=== PATIENT | male | born 1985 | race Caucasian/White ===

== ENCOUNTER 2017-04-19 10:33 | Emergency (ER) | payer OTHER ==
[2017-04-19] MEDS ORDERED: ASPIRIN 81 MG PO STA (10:49)
--- NOTE | 2017-04-19 10:51 | ED ---
General Adult HPI - General Chief complaint: Chest Pain Stated complaint: CHEST TIGHTNESS, LEFT ARM TINGLING Time Seen by Provider: 04/19/17 10:45 Source: patient, RN notes reviewed Mode of arrival: wheelchair Limitations: no limitations - History of Present Illness Initial comments: 31-year-old male presents to the emergency department with chief complaint of chest pain that radiates in the left arm. Patient describes it as a chest tightness and he states he had numbness and tingling to the left arm. Patient states he had a few days ago and he was in argument with his ex-. Patient states that then today he had it again while he was getting his kids ready for school. Patient states he is under a lot of stress Does cause a lot of stress but he states that this is concerning to him. Patient states left arm numbness has resolved but he still having the chest tightness. Patient denies any shortness of breath any nausea any diaphoresis with this. Patient does admit to history of smoking. Patient denies any health concerns or any young heart history in his family. Patient denies any recent fever, chills, shortness of breath, back pain, abdominal pain, nausea vomiting, numbness or tingling, dysuria or hematuria, constipation or diarrhea, headaches or visual changes, or any other current symptoms. - Related Data Home Medications Medication Instructions Recorded Confirmed No Known Home Medications [No 01/28/16 04/19/17 Known Home Medications] Allergies Allergy/AdvReac Type Severity Reaction Status Date / Time No Known Allergies Allergy Verified 04/19/17 14:04 Review of Systems ROS Statement: Those systems with pertinent positive or pertinent negative responses have been documented in the HPI. ROS Other: All systems not noted in ROS Statement are negative. Past Medical History Past Medical History: No Reported History History of Any Multi-Drug Resistant Organisms: None Reported Past Surgical History: Adenoidectomy, Tonsillectomy Past Psychological History: No Psychological Hx Reported Smoking Status: Former smoker Past Alcohol Use History: Rare Past Drug Use History: None Reported General Exam - General Exam Comments Initial Comments: General: The patient is awake and alert, in no distress, and does not appear acutely ill. Eye: Pupils are equal, round and reactive to light, extra-ocular movements are intact; there is normal conjunctiva bilaterally. No signs of icterus. Ears, nose, mouth and throat: There are moist mucous membranes and no oral lesions. Neck: The neck is supple, there is no tenderness. Cardiovascular: There is a regular rate and rhythm. No murmur, rub or gallop is appreciated. Respiratory: Lungs are clear to auscultation, respirations are non-labored, breath sounds are equal. No wheezes, stridor, rales, or rhonchi. Gastrointestinal: Soft, non-distended, non-tender abdomen without masses or organomegaly noted. There is no rebound or guarding present. No CVA tenderness. Bowel sounds are unremarkable. Back: There is no tenderness to palpation in the midline. There is no obvious deformity. No rashes noted. Musculoskeletal: Normal ROM, no tenderness, There is no pedal edema. There is no calf tenderness or swelling. Sensation intact. Pulses equal bilaterally 2+. Neurological: CN II-XII intact, There are no obvious motor or sensory deficits. Coordination appears grossly intact. Speech is normal. Skin: Skin is warm and dry and no rashes or lesions are noted. Psychiatric: Cooperative, appropriate mood & affect, normal judgment. Limitations: no limitations Course Vital Signs 04/19/17 04/19/17 04/19/17 10:41 12:56 13:05 Temperature 98.5 F Pulse Rate 65 65 72 Respiratory 20 16 Rate Blood Pressure 135/60 130/62 131/62 O2 Sat by Pulse 100 99 Oximetry 04/19/17 04/19/17 13:10 13:15 Temperature Pulse Rate 66 62 Respiratory 16 Rate Blood Pressure 130/56 122/60 O2 Sat by Pulse 99 Oximetry - Reevaluation(s) Reevaluation #1: 04/19/17 13:12 At this time patient does not have any improvement with nitro to his pain. At this time he states any time that he text an argument seems to have worsening tightness. EKG Findings - EKG Comments: EKG Findings:: normal sinus rhythm with sinus arrhythmia 60 bpm, normal axis, no atopy, no S-T depressions or elevations, Medical Decision Making - Medical Decision Making 31-year-old male presents to the emergency Department chief complaint of left- sided chest pain. At this time the patient lab work is reviewed as well as an EKG that does appear within normal limits. We called For Admission for Continued Cardiac Monitoring and They State That They Do Not Believe the Patient 's Heart Score Appropriate for Admission. At This Time We Did Keep the Patient Had a D-Dimer Which Is Negative.. Drug Screen Was Has Not Shown Use besides Marijuana. We Discussed Second Troponin 4 Hours Later That Is Also Negative. This Time We Discussed the Patient Was Family Care Doctor. He Does Seem to Have Increased Pain When He Talks to His Ex-. We Did Discuss This Could Be Related to Stress and Anxiety. Discussed Return Parameters QUESTIONS Very State [facility] Is Given Plan. He Will Be Discharged. - Lab Data Result diagrams: 04/19/17 11:15 04/19/17 11:15 Lab Results 04/19/17 04/19/17 04/19/17 Range/Units 11:15 11:15 11:15 WBC 9.4 (3.8-10.6) k/uL RBC 5.33 (4.30-5.90) m/uL Hgb 15.7 (13.0-17.5) gm/dL Hct 46.1 (39.0-53.0) % MCV 86.5 (80.0-100.0) fL MCH 29.5 (25.0-35.0) pg MCHC 34.1 (31.0-37.0) g/dL RDW 14.3 (11.5-15.5) % Plt Count 257 (150-450) k/uL Neutrophils % 64 % Lymphocytes % 25 % Monocytes % 5 % Eosinophils % 3 % Basophils % 1 % Neutrophils # 6.0 (1.3-7.7) k/uL Lymphocytes # 2.4 (1.0-4.8) k/uL Monocytes # 0.5 (0-1.0) k/uL Eosinophils # 0.2 (0-0.7) k/uL Basophils # 0.1 (0-0.2) k/uL PT (9.0-12.0) sec INR (<1.2) APTT (22.0-30.0) sec D-Dimer (<0.60) mg/L FEU Sodium 140 (137-145) mmol/L Potassium 4.5 (3.5-5.1) mmol/L Chloride 109 H (98-107) mmol/L Carbon Dioxide 23 (22-30) mmol/L Anion Gap 8 mmol/L BUN 13 (9-20) mg/dL Creatinine 0.60 L (0.66-1.25) mg/dL Est GFR (MDRD) Af Amer >60 (>60 ml/min/1.73 sqM) Est GFR (MDRD) Non-Af >60 (>60 ml/min/1.73 sqM) Glucose 88 (74-99) mg/dL Calcium 9.5 (8.4-10.2) mg/dL Magnesium 1.9 (1.6-2.3) mg/dL Total Bilirubin 0.7 (0.2-1.3) mg/dL AST 35 (17-59) U/L ALT 42 (21-72) U/L Alkaline Phosphatase 60 (38-126) U/L Total Creatine Kinase 459 H (55-170) U/L CK-MB (CK-2) 0.7 (0.0-2.4) ng/mL CK-MB (CK-2) Rel Index 0.2 Troponin I <0.012 (0.000-0.034) ng/mL Total Protein 6.8 (6.3-8.2) g/dL Albumin 4.2 (3.5-5.0) g/dL Urine Opiates Screen (NotDetected) Ur Oxycodone Screen (NotDetected) Urine Methadone Screen (NotDetected) Ur Propoxyphene Screen (NotDetected) Ur Barbiturates Screen (NotDetected) U Tricyclic Antidepress (NotDetected) Ur Phencyclidine Scrn (NotDetected) Ur Amphetamines Screen (NotDetected) U Methamphetamines Scrn (NotDetected) U Benzodiazepines Scrn (NotDetected) Urine Cocaine Screen (NotDetected) U Marijuana (THC) Screen (NotDetected) 04/19/17 04/19/17 04/19/17 Range/Units 11:15 11:15 13:38 WBC (3.8-10.6) k/uL RBC (4.30-5.90) m/uL Hgb (13.0-17.5) gm/dL Hct (39.0-53.0) % MCV (80.0-100.0) fL MCH (25.0-35.0) pg MCHC (31.0-37.0) g/dL RDW (11.5-15.5) % Plt Count (150-450) k/uL Neutrophils % % Lymphocytes % % Monocytes % % Eosinophils % % Basophils % % Neutrophils # (1.3-7.7) k/uL Lymphocytes # (1.0-4.8) k/uL Monocytes # (0-1.0) k/uL Eosinophils # (0-0.7) k/uL Basophils # (0-0.2) k/uL PT 10.8 (9.0-12.0) sec INR 1.1 (<1.2) APTT 24.9 (22.0-30.0) sec D-Dimer 0.23 (<0.60) mg/L FEU Sodium (137-145) mmol/L Potassium (3.5-5.1) mmol/L Chloride (98-107) mmol/L Carbon Dioxide (22-30) mmol/L Anion Gap mmol/L BUN (9-20) mg/dL Creatinine (0.66-1.25) mg/dL Est GFR (MDRD) Af Amer (>60 ml/min/1.73 sqM) Est GFR (MDRD) Non-Af (>60 ml/min/1.73 sqM) Glucose (74-99) mg/dL Calcium (8.4-10.2) mg/dL Magnesium (1.6-2.3) mg/dL Total Bilirubin (0.2-1.3) mg/dL AST (17-59) U/L ALT (21-72) U/L Alkaline Phosphatase (38-126) U/L Total Creatine Kinase (55-170) U/L CK-MB (CK-2) (0.0-2.4) ng/mL CK-MB (CK-2) Rel Index Troponin I (0.000-0.034) ng/mL Total Protein (6.3-8.2) g/dL Albumin (3.5-5.0) g/dL Urine Opiates Screen Not Detected (NotDetected) Ur Oxycodone Screen Not Detected (NotDetected) Urine Methadone Screen Not Detected (NotDetected) Ur Propoxyphene Screen Not Detected (NotDetected) Ur Barbiturates Screen Not Detected (NotDetected) U Tricyclic Antidepress Not Detected (NotDetected) Ur Phencyclidine Scrn Not Detected (NotDetected) Ur Amphetamines Screen Not Detected (NotDetected) U Methamphetamines Scrn Not Detected (NotDetected) U Benzodiazepines Scrn Not Detected (NotDetected) Urine Cocaine Screen Not Detected (NotDetected) U Marijuana (THC) Screen Detected H (NotDetected) 04/19/17 Range/Units 15:05 WBC (3.8-10.6) k/uL RBC (4.30-5.90) m/uL Hgb (13.0-17.5) gm/dL Hct (39.0-53.0) % MCV (80.0-100.0) fL MCH (25.0-35.0) pg MCHC (31.0-37.0) g/dL RDW (11.5-15.5) % Plt Count (150-450) k/uL Neutrophils % % Lymphocytes % % Monocytes % % Eosinophils % % Basophils % % Neutrophils # (1.3-7.7) k/uL Lymphocytes # (1.0-4.8) k/uL Monocytes # (0-1.0) k/uL Eosinophils # (0-0.7) k/uL Basophils # (0-0.2) k/uL PT (9.0-12.0) sec INR (<1.2) APTT (22.0-30.0) sec D-Dimer (<0.60) mg/L FEU Sodium (137-145) mmol/L Potassium (3.5-5.1) mmol/L Chloride (98-107) mmol/L Carbon Dioxide (22-30) mmol/L Anion Gap mmol/L BUN (9-20) mg/dL Creatinine (0.66-1.25) mg/dL Est GFR (MDRD) Af Amer (>60 ml/min/1.73 sqM) Est GFR (MDRD) Non-Af (>60 ml/min/1.73 sqM) Glucose (74-99) mg/dL Calcium (8.4-10.2) mg/dL Magnesium (1.6-2.3) mg/dL Total Bilirubin (0.2-1.3) mg/dL AST (17-59) U/L ALT (21-72) U/L Alkaline Phosphatase (38-126) U/L Total Creatine Kinase (55-170) U/L CK-MB (CK-2) (0.0-2.4) ng/mL CK-MB (CK-2) Rel Index Troponin I <0.012 (0.000-0.034) ng/mL Total Protein (6.3-8.2) g/dL Albumin (3.5-5.0) g/dL Urine Opiates Screen (NotDetected) Ur Oxycodone Screen (NotDetected) Urine Methadone Screen (NotDetected) Ur Propoxyphene Screen (NotDetected) Ur Barbiturates Screen (NotDetected) U Tricyclic Antidepress (NotDetected) Ur Phencyclidine Scrn (NotDetected) Ur Amphetamines Screen (NotDetected) U Methamphetamines Scrn (NotDetected) U Benzodiazepines Scrn (NotDetected) Urine Cocaine Screen (NotDetected) U Marijuana (THC) Screen (NotDetected) - Radiology Data Radiology results: report reviewed, image reviewed Disposition Clinical Impression: Chest pain, Anxiety Disposition: HOME SELF-CARE Condition: Stable Instructions: Chest Pain (ED) Additional Instructions: Please use medication as discussed. Please follow up with family doctor if symptoms have not improved over the next two days. Please return to the emergency room if your symptoms increase or worsen or for any other concerns. Referrals: Jessica Farrell MD [STAFF PHYSICIAN] - 1-2 days Time of Disposition: 15:47
[2017-04-19 11:32] LABS: Basophils # (A) 0.1 k/uL (0-0.2); Basophils % (A) 1 %; CH 30.7; CHCM 35.6; Eosinophils # (A) 0.2 k/uL (0-0.7); Eosinophils % (A) 3 %; HCT 46.1 % (39.0-53.0); HDW 2.56; HGB 15.7 gm/dL (13.0-17.5); Luc # (Auto) 0.19; Luc % (Auto) 2; Lymphocytes # (A) 2.4 k/uL (1.0-4.8); Lymphocytes % (A) 25 %; MCH 29.5 pg (25.0-35.0); MCHC 34.1 g/dL (31.0-37.0); MCV 86.5 fL (80.0-100.0); Mean Platelet Volume 8.2; Monocytes # (A) 0.5 k/uL (0-1.0); Monocytes % (A) 5 %; Neutrophils % (A) 64 %; RBC 5.33 m/uL (4.30-5.90); RDW 14.3 % (11.5-15.5); WBC 9.4 k/uL (3.8-10.6); WBC (Perox) 9.17
[2017-04-19 11:42] LABS: ALT 42 U/L (21-72); AST 35 U/L (17-59); Alkaline Phosphatase 60 U/L (38-126); Anion Gap 8 mmol/L; Blood Urea Nitrogen 13 mg/dL (9-20); Calcium 9.5 mg/dL (8.4-10.2); Carbon Dioxide 23 mmol/L (22-30); Chloride 109 mmol/L (98-107); Glucose 88 mg/dL (74-99); Magnesium 1.9 mg/dL (1.6-2.3); Non-African American GFR(MDRD) >60 (>60 ml/min/1.73 sqM); Potassium 4.5 mmol/L (3.5-5.1); Sodium 140 mmol/L (137-145); Total Bilirubin 0.7 mg/dL (0.2-1.3); Total Protein 6.8 g/dL (6.3-8.2)
--- NOTE | 2017-04-19 11:42 | XR ---
EXAMINATION TYPE: XR chest 2V DATE OF EXAM: 04/19/2017 HISTORY: Chest Pain. REFERENCE: Previous study dated 09/10/2015. FINDINGS: The lungs are clear. Pleural spaces are clear. The heart is not enlarged. IMPRESSION: NO ACTIVE INTRATHORACIC DISEASE.
[2017-04-19 11:48] LABS: Creatine Kinase 459 U/L (55-170)
[2017-04-19 11:59] LABS: Creatine Kinase MB 0.7 ng/mL (0.0-2.4); Troponin I <0.012 ng/mL (0.000-0.034)
[2017-04-19 12:01] LABS: INR 1.1 (<1.2); Partial Thromboplastin Time 24.9 sec (22.0-30.0); Prothrombin Time 10.8 sec (9.0-12.0)
[2017-04-19] MEDS ORDERED: NITROGLYCERIN SL TABS 0.4 MG TAB SUBLINGUAL STA (12:44)
[2017-04-19 12:57] VITALS: RESP 16
[2017-04-19 16:01] VITALS: BP 118/57; PULSE 65; TEMP 99
== END 2017-04-19 16:00 | disposition home or self-care (01) ==
LOC: EC 10:33
DX: R07.89 Other chest pain (principal); F41.9 Anxiety disorder, unspecified; R20.0 Anesthesia of skin; R20.2 Paresthesia of skin; Z87.891 Personal history of nicotine dependence
CPT/HCPCS: 36415; 71020; 80053; 80306; 82550; 82553; 83735; 84484; 85025; 85379; 85610; 85730; 93005; 99285

== ENCOUNTER 2017-04-21 14:52 | Inpatient (IN) | payer OTHER ==
[2017-04-21] MEDS ORDERED: LORazepam 2 MG/ML SYRINGE IV STA (15:34)
--- NOTE | 2017-04-21 15:50 | ED ---
General Adult HPI - General Chief complaint: Chest Pain Stated complaint: Chest tightness/SOB Time Seen by Provider: 04/21/17 15:24 Source: patient, RN notes reviewed Mode of arrival: ambulatory Limitations: no limitations - History of Present Illness Initial comments: 31-year-old male presents to the emergency Department chief complaint of chest pain. Patient states it feels like a tightness intense chest and radiates down left arm. Patient states she was seen here on Thursday for this. Patient states that time everything was negative sent home. Patient states that he continued to have the pain on and off for the past 2 days and today he just continued to lingering be intensively thought that he should be seen. Patient states the tightness in his chest and radiates on left arm. Patient states that the pain is always tight by Rm increased renal left arm on and off. Patient states had nausea without vomiting. Patient denies any diaphoresis. Patient states that when the pain gets more intense she does have some shortness of breath. Patient was concerned due to the continued pain.Patient denies any recent fever , chills, back pain, abdominal pain, nausea vomiting, numbness or tingling, dysuria or hematuria, constipation or diarrhea, headaches or visual changes, or any other current symptoms. - Related Data Home Medications Medication Instructions Recorded Confirmed No Known Home Medications [No 01/28/16 04/21/17 Known Home Medications] Allergies Allergy/AdvReac Type Severity Reaction Status Date / Time No Known Allergies Allergy Verified 04/21/17 15:20 Review of Systems ROS Statement: Those systems with pertinent positive or pertinent negative responses have been documented in the HPI. ROS Other: All systems not noted in ROS Statement are negative. Past Medical History Past Medical History: No Reported History History of Any Multi-Drug Resistant Organisms: None Reported Past Surgical History: Adenoidectomy, Tonsillectomy Past Psychological History: No Psychological Hx Reported Smoking Status: Former smoker Past Alcohol Use History: Rare Past Drug Use History: None Reported General Exam - General Exam Comments Initial Comments: General: The patient is awake and alert, in no distress, and does not appear acutely ill. Eye: Pupils are equal, round and reactive to light, extra-ocular movements are intact; there is normal conjunctiva bilaterally. No signs of icterus. Ears, nose, mouth and throat: There are moist mucous membranes and no oral lesions. Neck: The neck is supple, there is no tenderness. Cardiovascular: There is a regular rate and rhythm. No murmur, rub or gallop is appreciated. Respiratory: Lungs are clear to auscultation, respirations are non-labored, breath sounds are equal. No wheezes, stridor, rales, or rhonchi. Gastrointestinal: Soft, non-distended, non-tender abdomen without masses or organomegaly noted. There is no rebound or guarding present. No CVA tenderness. Bowel sounds are unremarkable. Back: There is no tenderness to palpation in the midline. There is no obvious deformity. No rashes noted. Musculoskeletal: Normal ROM, no tenderness, There is no pedal edema. There is no calf tenderness or swelling. Sensation intact. Pulses equal bilaterally 2+. Neurological: CN II-XII intact, There are no obvious motor or sensory deficits. Coordination appears grossly intact. Speech is normal. Skin: Skin is warm and dry and no rashes or lesions are noted. Psychiatric: Cooperative, appropriate mood & affect, normal judgment. Limitations: no limitations Course Vital Signs 04/21/17 04/21/17 14:55 16:13 Temperature 97.0 F L Pulse Rate 72 Pulse Rate [ 72 Right Radial] Respiratory 17 Rate Blood Pressure 129/93 O2 Sat by Pulse 100 Oximetry EKG Findings - EKG Comments: EKG Findings:: normal sinus rhythm 84 bpm, normal axis, no atopy, no S-T depressions or elevations, patient agreed. Patient does appear to have flattening of the T waves in V4 V5 and V6 which is new compared to EKG from Medical Decision Making - Medical Decision Making 31-year-old male presents with chest pain. At this time patient's lab work and EKG has been reviewed. Does appear to be some EKG changes compared to EKG from 2 days ago he continues have this chest pain. This time we will admit the patient for cardiac rule out. Patient family on agreement with plan. All questions have been answered. Patient will be admitted. - Lab Data Result diagrams: 04/21/17 15:45 04/21/17 15:45 Lab Results 04/21/17 04/21/17 04/21/17 Range/Units 15:45 15:45 15:45 WBC 10.7 H (3.8-10.6) k/uL RBC 5.51 (4.30-5.90) m/uL Hgb 16.3 (13.0-17.5) gm/dL Hct 47.1 (39.0-53.0) % MCV 85.5 (80.0-100.0) fL MCH 29.5 (25.0-35.0) pg MCHC 34.5 (31.0-37.0) g/dL RDW 14.1 (11.5-15.5) % Plt Count 249 (150-450) k/uL Neutrophils % 69 % Lymphocytes % 23 % Monocytes % 5 % Eosinophils % 3 % Basophils % 0 % Neutrophils # 7.3 (1.3-7.7) k/uL Lymphocytes # 2.4 (1.0-4.8) k/uL Monocytes # 0.5 (0-1.0) k/uL Eosinophils # 0.3 (0-0.7) k/uL Basophils # 0.0 (0-0.2) k/uL D-Dimer <0.17 (<0.60) mg/L FEU Sodium 140 (137-145) mmol/L Potassium 4.8 (3.5-5.1) mmol/L Chloride 108 H (98-107) mmol/L Carbon Dioxide 21 L (22-30) mmol/L Anion Gap 11 mmol/L BUN 11 (9-20) mg/dL Creatinine 0.60 L (0.66-1.25) mg/dL Est GFR (MDRD) Af Amer >60 (>60 ml/min/1.73 sqM) Est GFR (MDRD) Non-Af >60 (>60 ml/min/1.73 sqM) Glucose 85 (74-99) mg/dL Calcium 9.5 (8.4-10.2) mg/dL Total Bilirubin 0.8 (0.2-1.3) mg/dL AST 39 (17-59) U/L ALT 39 (21-72) U/L Alkaline Phosphatase 53 (38-126) U/L Troponin I (0.000-0.034) ng/mL Total Protein 7.2 (6.3-8.2) g/dL Albumin 4.5 (3.5-5.0) g/dL 04/21/17 Range/Units 15:45 WBC (3.8-10.6) k/uL RBC (4.30-5.90) m/uL Hgb (13.0-17.5) gm/dL Hct (39.0-53.0) % MCV (80.0-100.0) fL MCH (25.0-35.0) pg MCHC (31.0-37.0) g/dL RDW (11.5-15.5) % Plt Count (150-450) k/uL Neutrophils % % Lymphocytes % % Monocytes % % Eosinophils % % Basophils % % Neutrophils # (1.3-7.7) k/uL Lymphocytes # (1.0-4.8) k/uL Monocytes # (0-1.0) k/uL Eosinophils # (0-0.7) k/uL Basophils # (0-0.2) k/uL D-Dimer (<0.60) mg/L FEU Sodium (137-145) mmol/L Potassium (3.5-5.1) mmol/L Chloride (98-107) mmol/L Carbon Dioxide (22-30) mmol/L Anion Gap mmol/L BUN (9-20) mg/dL Creatinine (0.66-1.25) mg/dL Est GFR (MDRD) Af Amer (>60 ml/min/1.73 sqM) Est GFR (MDRD) Non-Af (>60 ml/min/1.73 sqM) Glucose (74-99) mg/dL Calcium (8.4-10.2) mg/dL Total Bilirubin (0.2-1.3) mg/dL AST (17-59) U/L ALT (21-72) U/L Alkaline Phosphatase (38-126) U/L Troponin I <0.012 (0.000-0.034) ng/mL Total Protein (6.3-8.2) g/dL Albumin (3.5-5.0) g/dL - Radiology Data Radiology results: report reviewed, image reviewed Disposition Clinical Impression: Chest pain, Acute electrocardiogram changes Disposition: ADMITTED IP TO THIS [facility] Condition: Stable Referrals: None,Stated [Primary Care Provider] - 1-2 days Decision Date: 04/21/17 Decision Time: 17:08
[2017-04-21 16:02] LABS: Basophils % (A) 0 %; CH 30.7; CHCM 36.1; Eosinophils # (A) 0.3 k/uL (0-0.7); Eosinophils % (A) 3 %; HCT 47.1 % (39.0-53.0); HDW 2.63; HGB 16.3 gm/dL (13.0-17.5); Luc % (Auto) 1; Lymphocytes # (A) 2.4 k/uL (1.0-4.8); Lymphocytes % (A) 23 %; MCH 29.5 pg (25.0-35.0); MCHC 34.5 g/dL (31.0-37.0); MCV 85.5 fL (80.0-100.0); Mean Platelet Volume 8.4; Monocytes # (A) 0.5 k/uL (0-1.0); Monocytes % (A) 5 %; Neutrophils # (A) 7.3 k/uL (1.3-7.7); Neutrophils % (A) 69 %; RBC 5.51 m/uL (4.30-5.90); RDW 14.1 % (11.5-15.5); WBC 10.7 k/uL (3.8-10.6); WBC (Perox) 10.02
--- NOTE | 2017-04-21 16:04 | XR ---
EXAMINATION TYPE: XR chest 2V DATE OF EXAM: 04/21/2017 COMPARISON: 04/19/2017 INDICATION: Cough congestion TECHNIQUE: Frontal and lateral views of the chest are obtained. FINDINGS: The heart size is normal. The pulmonary vasculature is normal. The lungs are clear. Azygos fissure is noted. IMPRESSION: 1. No acute pulmonary process.
[2017-04-21 16:21] LABS: ALT 39 U/L (21-72); AST 39 U/L (17-59); Alkaline Phosphatase 53 U/L (38-126); Anion Gap 11 mmol/L; Blood Urea Nitrogen 11 mg/dL (9-20); Calcium 9.5 mg/dL (8.4-10.2); Carbon Dioxide 21 mmol/L (22-30); Chloride 108 mmol/L (98-107); Glucose 85 mg/dL (74-99); Non-African American GFR(MDRD) >60 (>60 ml/min/1.73 sqM); Potassium 4.8 mmol/L (3.5-5.1); Sodium 140 mmol/L (137-145); Total Bilirubin 0.8 mg/dL (0.2-1.3); Total Protein 7.2 g/dL (6.3-8.2)
[2017-04-21] MEDS ORDERED: ONDANSETRON 4 MG/2 ML VIAL IVP PRN (17:08)
[2017-04-21] MEDS ORDERED: ACETAMINOPHEN TAB 325 MG TAB PO PRN (17:08)
[2017-04-21] MEDS ORDERED: LORazepam 2 MG/ML SYRINGE IV PRN (17:08)
[2017-04-21] MEDS ORDERED: NALOXONE 0.4 MG/ML 1 ML VIAL IV PRN (17:08)
[2017-04-21] MEDS ORDERED: HEPARIN SODIUM,PORCINE 5,000 UNIT/ML 1 ML VIAL IV ONE (17:20)
[2017-04-21] MEDS ORDERED: ASPIRIN 325 MG TAB PO STA (17:21)
[2017-04-21] MEDS: SODIUM CHLORIDE 0.9% 1,000 ML IV SCH (17:50)
[2017-04-21] MEDS: HEPARIN SODIUM,PORCINE/D5W PMX 25,000 UNIT in DEXTROSE/WATER 1 500ML.BAG IV SCH (17:50)
[2017-04-21 17:56] LABS: Creatine Kinase MB 0.5 ng/mL (0.0-2.4)
[2017-04-21 23:33] LABS: Creatine Kinase 62 U/L (55-170)
[2017-04-21 23:47] LABS: Creatine Kinase MB 0.2 ng/mL (0.0-2.4); Troponin I <0.012 ng/mL (0.000-0.034)
[2017-04-22] MEDS: HEPARIN SODIUM,PORCINE 5,000 UNIT/ML 1 ML VIAL IV PRN ×2 (01:13→09:14)
[2017-04-22 04:40] LABS: Creatine Kinase 56 U/L (55-170)
[2017-04-22 04:48] LABS: Creatine Kinase MB 0.3 ng/mL (0.0-2.4); Troponin I <0.012 ng/mL (0.000-0.034)
[2017-04-22 07:54] VITALS: BMI 35.9
[2017-04-22] MEDS: SODIUM CHLORIDE 0.9% 1,000 ML IV SCH (08:02)
[2017-04-22] MEDS: ASPIRIN 325 MG TAB PO SCH (09:14)
[2017-04-22] MEDS: HEPARIN SODIUM,PORCINE/D5W PMX 25,000 UNIT in DEXTROSE/WATER 1 500ML.BAG IV SCH (09:16)
--- NOTE | 2017-04-22 09:56 | P.CRDCN ---
History of Present Illness Consult date: 04/22/17 Requesting physician: Abel Campo Consult reason: chest pain Chief complaint: Chest pain History of present illness: This is a pleasant 31-year-old gentleman with history of nicotine dependence, denies any history of hypertension, no hyperlipidemia, no diabetes, no family history of premature coronary artery disease. He presents to the hospital with symptoms of midsternal chest tightness with radiation to the left arm and shoulder area and numbness in the left arm. Patient states he's been getting these symptoms off and on for the past couple of weeks however yesterday it seemed to be much more persistent. Patient also states he gets an associated sharp chest pain with that, as of yesterday. Patient has been under a considerable amount of stress in his relationship with his girlfriend, it seems as though symptoms started when he was having an argument with her. Blood pressure 128/90 with a heart rate in the 70s, 100% on room air. EKG on admission shows a normal sinus rhythm with inferior lateral ST-T wave changes. Rest x-ray does not reveal any acute pulmonary process. White blood cell count 10.7, hemoglobin 16.3, platelet count 249. D-dimer 0.017, potassium 4.8, BUN 11 , creatinine 0.6. Troponins are negative 3. Patient did come to the emergency room on the with similar symptoms, he was discharged home from there. His EKG at that time showed a normal sinus rhythm with no changes in the inferior lateral leads. Troponins were negative 2. The time of my examination this morning, patient is currently on IV heparin, he denies any chest discomfort. Patient has been exercising, and changed his diet significantly since August, he has lost 110 pounds. Past Medical History Past Medical History: No Reported History History of Any Multi-Drug Resistant Organisms: None Reported Past Surgical History: Adenoidectomy, Tonsillectomy Past Anesthesia/Blood Transfusion Reactions: No Reported Reaction Past Psychological History: No Psychological Hx Reported Smoking Status: Current every day smoker Past Alcohol Use History: None Reported, Rare Past Drug Use History: None Reported Medications and Allergies Home Medications Medication Instructions Recorded Confirmed Type No Known Home Medications [No 01/28/16 04/21/17 History Known Home Medications] Allergies Allergy/AdvReac Type Severity Reaction Status Date / Time No Known Allergies Allergy Verified 04/21/17 15:20 Physical Exam Vitals: Vital Signs Temp Pulse Pulse Pulse Resp BP BP 04/22/17 09:15 97.4 F L 57 L 18 121/69 04/22/17 04:00 96.2 F L 68 18 109/69 04/22/17 00:00 97.2 F L 62 18 107/57 04/21/17 20:51 99.3 F 04/21/17 20:49 96.9 F L 68 18 130/64 04/21/17 20:40 87 16 130/66 04/21/17 18:29 69 18 121/70 04/21/17 17:59 69 18 122/61 04/21/17 16:13 72 04/21/17 14:55 97.0 F L 72 17 129/93 Pulse Ox 04/22/17 09:15 100 04/22/17 04:00 97 04/22/17 00:00 97 04/21/17 20:51 04/21/17 20:49 97 04/21/17 20:40 98 04/21/17 18:29 99 04/21/17 17:59 98 04/21/17 16:13 04/21/17 14:55 100 Intake and Output 04/21/17 04/22/17 04/22/17 22:59 06:59 14:59 Intake Total 308 217.913 Balance 308 217.913 Intake: IV 160 Heparin Sodium,Porcine/ 160 D5w Pmx 25,000 unit In Dextrose/Water 1 500ml. bag @ 8.48 UNITS/KG/HR 20 mls/hr IV .Q24H [facility] Rx#: [id number] Intake, IV Titration 148 217.913 Amount Heparin Sodium,Porcine/ 148 217.913 D5w Pmx 25,000 unit In Dextrose/Water 1 500ml. bag @ 8.48 UNITS/KG/HR 20 mls/hr IV .Q24H [facility] Rx#: [id number] Other: Voiding Method Toilet Toilet Toilet Urinal Urinal Urinal # Voids 2 Weight 121.1 kg 120.202 kg Patient Weight 04/23/17 06:59 Weight 120.202 kg PHYSICAL EXAMINATION: HEENT: Head is atraumatic, normocephalic. Pupils equal, round. Neck is supple. There is no elevated jugular venous pressure. HEART EXAMINATION: Heart S1, S2 normal. No murmur or gallop heard. CHEST EXAMINATION: Lungs are clear to auscultation and precussion. No chest wall tenderness is noted on palpation or with deep breathing. ABDOMEN: Soft, nontender. Bowel sounds are heard. No organomegaly noted. EXTREMITIES: 2+ peripheral pulses with no evidence of peripheral edema and no calf tenderness noted. NEUROLOGIC patient is awake, alert and oriented -3. . Results 04/21/17 15:45 04/21/17 15:45 Cardiac Enzymes 04/21/17 04/21/17 04/21/17 Range/Units 15:45 15:45 15:45 AST 39 (17-59) U/L CK-MB (CK-2) 0.5 (0.0-2.4) ng/mL Troponin I <0.012 (0.000-0.034) ng/mL 04/21/17 04/22/17 Range/Units 22:43 03:39 AST (17-59) U/L CK-MB (CK-2) 0.2 0.3 (0.0-2.4) ng/mL Troponin I <0.012 <0.012 (0.000-0.034) ng/mL Coagulation 04/21/17 04/22/17 Range/Units 22:43 05:47 APTT 27.8 38.7 H (22.0-30.0) sec CBC 04/21/17 Range/Units 15:45 WBC 10.7 H (3.8-10.6) k/uL RBC 5.51 (4.30-5.90) m/uL Hgb 16.3 (13.0-17.5) gm/dL Hct 47.1 (39.0-53.0) % Plt Count 249 (150-450) k/uL Comprehensive Metabolic Panel 04/21/17 Range/Units 15:45 Sodium 140 (137-145) mmol/L Potassium 4.8 (3.5-5.1) mmol/L Chloride 108 H (98-107) mmol/L Carbon Dioxide 21 L (22-30) mmol/L BUN 11 (9-20) mg/dL Creatinine 0.60 L (0.66-1.25) mg/dL Glucose 85 (74-99) mg/dL Calcium 9.5 (8.4-10.2) mg/dL AST 39 (17-59) U/L ALT 39 (21-72) U/L Alkaline Phosphatase 53 (38-126) U/L Total Protein 7.2 (6.3-8.2) g/dL Albumin 4.5 (3.5-5.0) g/dL Current Medications Generic Name Dose Route Start Last Admin Trade Name Freq PRN Reason Stop Dose Admin Acetaminophen 650 mg 04/21/17 17:08 Tylenol Tab PO Q6HR PRN Mild Pain or Fever > 100.5 Aspirin 325 mg 04/22/17 09:00 04/22/17 09:14 Aspirin PO 325 mg DAILY ANI Administration Heparin Sodium (Porcine) 0 unit 04/21/17 17:20 04/22/17 09:14 Heparin IV 4,000 unit PER PROTOCOL PRN Administration Low PTT Protocol Sodium Chloride 1,000 mls @ 100 mls/hr 04/21/17 17:15 04/22/17 08:02 Saline 0.9% IV Not Given .Q10H [facility] Heparin Sodium/Dextrose 25,000 500 mls @ 20 mls/hr 04/21/17 17:30 04/22/17 09 :17 unit/ IV Solution IV 14.48 units/kg/hr .Q24H [facility] 34.15 mls/hr Protocol Titration 8.48 UNITS/KG/HR Lorazepam 0.5 mg 04/21/17 17:08 Ativan IV Q6HR PRN Anxiety Naloxone HCl 0.2 mg 04/21/17 17:08 Narcan IV Q2M PRN Opioid Reversal Ondansetron HCl 4 mg 04/21/17 17:08 Zofran IVP Q8HR PRN Nausea And Vomiting Intake and Output 04/21/17 04/22/17 04/22/17 22:59 06:59 14:59 Intake Total 308 217.913 Balance 308 217.913 Intake: IV 160 Heparin Sodium,Porcine/ 160 D5w Pmx 25,000 unit In Dextrose/Water 1 500ml. bag @ 8.48 UNITS/KG/HR 20 mls/hr IV .Q24H [facility] Rx#: [id number] Intake, IV Titration 148 217.913 Amount Heparin Sodium,Porcine/ 148 217.913 D5w Pmx 25,000 unit In Dextrose/Water 1 500ml. bag @ 8.48 UNITS/KG/HR 20 mls/hr IV .Q24H [facility] Rx#: [id number] Other: Voiding Method Toilet Toilet Toilet Urinal Urinal Urinal # Voids 2 Weight 121.1 kg 120.202 kg Patient Weight 04/23/17 06:59 Weight 120.202 kg 04/21/17 15:45 04/21/17 15:45 EKG Interpretations (text) EKG shows normal sinus rhythm with inferior lateral ST-T wave changes Assessment and Plan Plan: Assessment and plan #1 symptoms of midsternal chest tightness with radiation to the left arm and associated left arm numbness. Troponins negative 3. EKG shows a normal sinus rhythm with nonspecific ST-T wave changes in the inferior lateral leads. #2 nicotine dependence #3 cardiac risk factors negative for hypertension, no diabetes, no hyperlipidemia, no family history of premature coronary disease Plan We will obtain an echocardiogram with Doppler study. We will also check a fasting lipid profile. Patient has been advised that he will need to undergo further workup for underlying coronary artery disease. Further recommendations to follow. DNP note has been reviewed, I agree with a documented findings and plan of care. Patient was seen and examined.
[2017-04-22 10:14] LABS: Cholesterol 177 mg/dL (<200); HDL Cholesterol 31 mg/dL (40-60)
--- NOTE | 2017-04-22 12:10 | P.HPIM ---
History of Present Illness This is a pleasant 31-year-old gentleman with history of nicotine dependence, denies any history of hypertension, no hyperlipidemia, no diabetes, no family history of premature coronary artery disease. He presents to the hospital with symptoms of midsternal chest tightness with radiation to the left arm and shoulder area and numbness in the left arm. Patient states he's been getting these symptoms off and on for the past couple of weeks however yesterday it seemed to be much more persistent. Patient also states he gets an associated sharp chest pain with that, as of yesterday. Patient has been under a considerable amount of stress in his relationship with his girlfriend, it seems as though symptoms started when he was having an argument with her. Rest x-ray does not reveal any acute pulmonary process. D-dimer 0.017, potassium 4.8, BUN 11, creatinine 0.6. Troponins are negative 3. Patient did come to the emergency room on the with similar symptoms, he was discharged home from there. His EKG at that time showed a normal sinus rhythm with no changes in the inferior lateral leads. Unsure of the exact etiology of chest pain but patient is undergoing stresses if that's negative patient will be discharged rule out pulmonary embolism as well. Review of Systems REVIEW OF SYSTEMS: CONSTITUTIONAL: No fever, no malaise, no fatigue. HEENT: No recent visual problems or hearing problems. Denied any sore throat. CARDIOVASCULAR: No orthopnea, PND, no palpitations, no syncope. PULMONARY: No shortness of breath, no cough, no hemoptysis. GASTROINTESTINAL: No diarrhea, no nausea, no vomiting, no abdominal pain. Normoactive bowel sounds. NEUROLOGICAL: No headaches, no weakness, no numbness. HEMATOLOGICAL: Denies any bleeding or petechiae. GENITOURINARY: Denies any burning micturition, frequency, or urgency. MUSCULOSKELETAL/RHEUMATOLOGICAL: Denies any joint pain, swelling, or any muscle pain. ENDOCRINE: Denies any polyuria or polydipsia. The rest of the 14-point review of systems is negative. Past Medical History Past Medical History: No Reported History History of Any Multi-Drug Resistant Organisms: None Reported Past Surgical History: Adenoidectomy, Tonsillectomy Past Anesthesia/Blood Transfusion Reactions: No Reported Reaction Past Psychological History: No Psychological Hx Reported Smoking Status: Current every day smoker Past Alcohol Use History: None Reported, Rare Past Drug Use History: None Reported Medications and Allergies Home Medications Medication Instructions Recorded Confirmed Type No Known Home Medications [No 01/28/16 04/21/17 History Known Home Medications] Allergies Allergy/AdvReac Type Severity Reaction Status Date / Time No Known Allergies Allergy Verified 04/21/17 15:20 Physical Exam Vitals: Vital Signs Temp Pulse Pulse Pulse Resp BP BP 04/22/17 09:15 97.4 F L 57 L 18 121/69 04/22/17 04:00 96.2 F L 68 18 109/69 04/22/17 00:00 97.2 F L 62 18 107/57 04/21/17 20:51 99.3 F 04/21/17 20:49 96.9 F L 68 18 130/64 04/21/17 20:40 87 16 130/66 04/21/17 18:29 69 18 121/70 04/21/17 17:59 69 18 122/61 04/21/17 16:13 72 04/21/17 14:55 97.0 F L 72 17 129/93 Pulse Ox 04/22/17 09:15 100 04/22/17 04:00 97 04/22/17 00:00 97 04/21/17 20:51 04/21/17 20:49 97 04/21/17 20:40 98 04/21/17 18:29 99 04/21/17 17:59 98 04/21/17 16:13 04/21/17 14:55 100 Intake and Output 04/21/17 04/22/17 04/22/17 22:59 06:59 14:59 Intake Total 308 217.913 Balance 308 217.913 Intake: IV 160 Heparin Sodium,Porcine/ 160 D5w Pmx 25,000 unit In Dextrose/Water 1 500ml. bag @ 8.48 UNITS/KG/HR 20 mls/hr IV .Q24H [facility] Rx#: [id number] Intake, IV Titration 148 217.913 Amount Heparin Sodium,Porcine/ 148 217.913 D5w Pmx 25,000 unit In Dextrose/Water 1 500ml. bag @ 8.48 UNITS/KG/HR 20 mls/hr IV .Q24H [facility] Rx#: [id number] Other: Voiding Method Toilet Toilet Toilet Urinal Urinal Urinal # Voids 2 Weight 121.1 kg 120.202 kg Patient Weight 04/23/17 06:59 Weight 120.202 kg PHYSICAL EXAMINATION: GENERAL: The patient is alert and oriented x3, not in any acute distress. Well developed, well nourished. HEENT: Pupils are round and equally reacting to light. EOMI. No scleral icterus. No conjunctival pallor. Normocephalic, atraumatic. No pharyngeal erythema. No thyromegaly. CARDIOVASCULAR: S1 and S2 present. No murmurs, rubs, or gallops. PULMONARY: Chest is clear to auscultation, no wheezing or crackles. ABDOMEN: Soft, nontender, nondistended, normoactive bowel sounds. No palpable organomegaly. MUSCULOSKELETAL: No joint swelling or deformity. EXTREMITIES: No cyanosis, clubbing, or pedal edema. NEUROLOGICAL: Gross neurological examination did not reveal any focal deficits. SKIN: No rashes. Results CBC & Chem 7: 04/21/17 15:45 04/21/17 15:45 Labs: Abnormal Lab Results - Last 24 Hours (Table) 04/21/17 04/21/17 04/22/17 Range/Units 15:45 15:45 03:39 WBC 10.7 H (3.8-10.6) k/uL APTT (22.0-30.0) sec Chloride 108 H (98-107) mmol/L Carbon Dioxide 21 L (22-30) mmol/L Creatinine 0.60 L (0.66-1.25) mg/dL LDL Cholesterol, Calc 124 H (0-99) mg/dL HDL Cholesterol 31 L (40-60) mg/dL 04/22/17 Range/Units 05:47 WBC (3.8-10.6) k/uL APTT 38.7 H (22.0-30.0) sec Chloride (98-107) mmol/L Carbon Dioxide (22-30) mmol/L Creatinine (0.66-1.25) mg/dL LDL Cholesterol, Calc (0-99) mg/dL HDL Cholesterol (40-60) mg/dL Thrombosis Risk Factor Assmnt - Choose All That Apply Any of the Below Risk Factors Present?: No Other Risk Factors: No Other congenital or acquired thrombophilia - If yes, enter type in comment: No Thrombosis Risk Factor Assessment Level: Very Low Risk Assessment and Plan Plan: #1 chest pain: May be musculoskeletal, recommended [id number] Tylenol patient will undergo stress test ruled out acute coronary syndromes and unstable angina if for a stress test is negative patient will be discharged today. #2 nicotine abuse: Counseling was provided regarding that #3 rule out pulmonary embolism #4 obesity: Counseling was provided
--- NOTE | 2017-04-22 12:11 | P.DS ---
Providers Date of admission: 04/21/17 17:08 Attending physician: Abel Campo Consults: 04/21/17 17:09 Consult Physician Routine Consulting Provider: Marty Richards Consult Reason/Comments: chest pain Do you want consulting provider notified?: Yes Primary care physician: Stated None Hospital Course: Please refer to my HPI Patient Condition at Discharge: Stable Plan - Discharge Summary New Discharge Prescriptions: No Action No Known Home Medications [No Known Home Medications] Discharge Medication List No Known Home Medications [No Known Home Medications] 01/28/16 [History] Follow up Appointment(s)/Referral(s): Virginia Person MD [STAFF PHYSICIAN] - 1 Week None,Stated [Primary Care Provider] - 1-2 days Discharge Disposition: HOME SELF-CARE
--- NOTE | 2017-04-22 12:43 | ECHOF ---
Referral Reason:assess lvf MEASUREMENTS -------- HEIGHT: 182.9 cm WEIGHT: 120.2 kg BP: 121/69 RVIDd: 3.5 cm (< 3.3) IVSd: 1.1 cm (0.6 - 1.1) LVIDd: 5.3 cm (3.9 - 5.3) LVPWd: 1.2 cm (0.6 - 1.1) IVSs: 1.5 cm LVIDs: 4.0 cm LVPWs: 1.8 cm LA Diam: 3.8 cm (2.7 - 3.8) Ao Diam: 3.9 cm (2.0 - 3.7) AV Cusp: 2.7 cm (1.5 - 2.6) MV EXCURSION: 25.076 mm (> 18.000) MV EF SLOPE: 126 mm/s (70 - 150) EPSS: 0.7 cm MV E Sam: 1.10 m/s MV DecT: 216 ms MV A Sam: 0.58 m/s MV E/A Ratio: 1.90 FINDINGS -------- Sinus rhythm. This was a technically good study. The left ventricular size is normal. There is borderline concentric left ventricular hypertrophy. Overall left ventricular systolic function is normal with, an EF between 55 - 60 %. The right ventricle is mildly enlarged. The left atrial size is normal. The right atrium is normal in size. The aortic valve is trileaflet and appears structurally normal. The mitral valve is normal. The tricuspid valve appears structurally normal. Pulmonic valve appears structurally normal. The aortic root is dilated measuring 3.9cm. Normal inferior vena cava with normal inspiratory collapse consistent with estimated right atrial pressure of 5 mmHg. There is no pericardial effusion. CONCLUSIONS -------- 1. Sinus rhythm. 2. The mitral valve is normal. 3. The tricuspid valve appears structurally normal. 4. Pulmonic valve appears structurally normal. 5. The aortic root is dilated measuring 3.9cm. 6. Normal inferior vena cava with normal inspiratory collapse consistent with estimated right atrial pressure of 5 mmHg. 7. There is no pericardial effusion. 8. This was a technically good study. 9. The left ventricular size is normal. 10. There is borderline concentric left ventricular hypertrophy. 11. Overall left ventricular systolic function is normal with, an EF between 55 - 60 %. 12. The right ventricle is mildly enlarged. 13. The left atrial size is normal. 14. The right atrium is normal in size. 15. The aortic valve is trileaflet and appears structurally normal. BATCH DUMPER: Brittanie Mckeon RDCS
[2017-04-22] MEDS ORDERED: ASPIRIN 325 MG TAB PO STA (15:40)
[2017-04-22] MEDS ORDERED: ATORVASTATIN 80 MG TAB PO STA (15:40)
[2017-04-22] MEDS ORDERED: ALPRAZolam 0.25 MG TAB PO PRN (15:40)
[2017-04-22] MEDS ORDERED: NITROGLYCERIN SL TABS 0.4 MG TAB SUBLINGUAL PRN (15:40)
[2017-04-22] MEDS ORDERED: SODIUM CHLORIDE 0.9% 1,000 ML in EMPTY BAG 1 BAG IV ONE (15:40)
[2017-04-22] MEDS ORDERED: ALPRAZolam 0.5 MG TAB PO PRN (15:40)
[2017-04-22] MEDS ORDERED: ATORVASTATIN 80 MG TAB PO SCH (21:00)
--- NOTE | 2017-04-23 05:20 | ECHOS ---
STRESS ECHOCARDIOGRAM DATE OF SERVICE: 04/22/2017 INDICATIONS: Chest pain. MEDICATIONS:: BASELINE HEART RATE: 83 BASELINE BLOOD PRESSURE: 122/55 MAXIMUM HEART RATE: 178 MAXIMUM BLOOD PRESSURE: 201/56 85% MPHR: 162 100% MPHR: 191 METS: 12.1 MAXIMUM STAGE REACHED: IV TOTAL EXERCISE TIME: 11 minutes CLINICAL INFORMATION: Patient is referred for a stress echo. Baseline heart rate 83 beats per minute. Baseline blood pressure 122/55 mmHg. Baseline 12-lead ECG showed sinus rhythm with normal ST segments. The patient exercised on Tony protocol for 11 minutes. He achieved a peak heart rate of 178 beats per minute. Mildly hypertensive response to exercise, 201/56 mmHg and 12.1 METS achieved. There was no ECG evidence for ischemia. No exercise-induced arrhythmias were noted. Baseline 2D echo images were normal with normal LV size and systolic function without any regional wall motion abnormalities. At peak exercise, there was augmentation of overall LV contractility, however, the inferobasal segment became hypokinetic. This improved at the time of recovery. IMPRESSION: Excellent exercise capacity. Likely ischemia in the inferobasal LV wall based upon the segmental response noted at peak exercise. This was communicated to Dr. Sanchez and Dr. Mosley. MORGAN / ANTHONYN: [id number] /
[2017-04-23 06:28] LABS: Glucose,Whole Blood 96 mg/dL (75-99)
[2017-04-23] MEDS: ASPIRIN 325 MG TAB PO SCH (06:53)
--- NOTE | 2017-04-23 11:49 | P.PN ---
Subjective Patient was admitted for chest pain patient has a positive stress test for which patient will undergo cardiac catheterization today. Patient still has chest pressure like sensation denied any shortness of breath, nausea, vomiting, dysuria, cough. Objective - Vital Signs Vital signs: Vital Signs Temp 97 F L 04/23/17 07:39 Pulse 82 04/23/17 07:39 Resp 18 04/23/17 07:39 BP 120/61 04/23/17 07:39 Pulse Ox 97 04/23/17 07:39 Intake & Output 04/22/17 04/23/17 04/23/17 18:59 06:59 18:59 Intake Total 779.112 7492 Balance 621.329 4876 Weight 120.202 kg 120.7 kg Intake: IV 1080 0.9@120mls/hr 1080 Intake, IV Titration 217.913 Amount Heparin Sodium,Porcine/ 217.913 D5w Pmx 25,000 unit In Dextrose/Water 1 500ml. bag @ 8.48 UNITS/KG/HR 20 mls/hr IV .Q24H [facility] Rx#: [id number] Oral 460 Other: Voiding Method Toilet Toilet Toilet Urinal Urinal Urinal # Voids 1 1 - Exam PHYSICAL EXAMINATION: GENERAL: The patient is alert and oriented x3, not in any acute distress. Well developed, well nourished. HEENT: Pupils are round and equally reacting to light. EOMI. No scleral icterus. No conjunctival pallor. Normocephalic, atraumatic. No pharyngeal erythema. No thyromegaly. CARDIOVASCULAR: S1 and S2 present. No murmurs, rubs, or gallops. PULMONARY: Chest is clear to auscultation, no wheezing or crackles. ABDOMEN: Soft, nontender, nondistended, normoactive bowel sounds. No palpable organomegaly. MUSCULOSKELETAL: No joint swelling or deformity. EXTREMITIES: No cyanosis, clubbing, or pedal edema. NEUROLOGICAL: Gross neurological examination did not reveal any focal deficits. SKIN: No rashes. - Labs CBC & Chem 7: 04/21/17 15:45 04/21/17 15:45 Assessment and Plan Plan: #1 chest pain: Rule out acute coronary syndromes, patient does have positive stress test is going for cardiac catheterization today #2 nicotine abuse: Counseling was provided regarding that #3 ruled out pulmonary embolism #4 obesity: Counseling was provided
[2017-04-23] MEDS ORDERED: LIDOCAINE 2% INJ 20 MG/ML (20 ML MDV) ONE (13:53)
[2017-04-23] MEDS ORDERED: diphenhydrAMINE 50 MG/ML 1 ML VIAL ONE (13:53)
[2017-04-23] MEDS ORDERED: MIDAZOLAM 2 MG/2 ML VIAL ONE ×2 (13:53→14:26)
[2017-04-23] MEDS ORDERED: VERAPAMIL 2.5 MG/ML 2 ML AMP ONE (13:54)
[2017-04-23] MEDS ORDERED: IV FLUID CONTINUATION 500 ML IV ONE (14:02)
[2017-04-23] MEDS ORDERED: diphenhydrAMINE 50 MG/ML 1 ML VIAL IVP ONE (14:13)
[2017-04-23] MEDS ORDERED: MIDAZOLAM 2 MG/2 ML VIAL IV ONE ×2 (14:15→14:28)
[2017-04-23] MEDS ORDERED: LIDOCAINE 2% INJ 20 MG/ML SQ ONE (14:18)
[2017-04-23] MEDS ORDERED: HEPARIN SODIUM 1,000 UN/ML (10ML VL) ONE (14:19)
[2017-04-23] MEDS ORDERED: fentaNYL (PF) 50 MCG/ML 2 ML AMP ONE (14:19)
[2017-04-23] MEDS ORDERED: fentaNYL (PF) 50 MCG/ML 2 ML AMP IV ONE (14:20)
[2017-04-23] MEDS ORDERED: IOHEXOL 350 MG/ML 125ML BOTTLE INJ ONE (14:41)
[2017-04-23] MEDS ORDERED: RX INFO: IV CONTRAST WAS GIVEN 1 EACH MISC MISCELLANE PRN (14:44)
[2017-04-23] MEDS ORDERED: SODIUM CHLORIDE 0.9% 1,000 ML IV SCH (14:45)
--- NOTE | 2017-04-23 19:36 | CC ---
CARDIAC CATHETERIZATION REPORT DATE OF SERVICE: 04/23/2017 PERFORMING PHYSICIAN: Thad Sanchez M.D., electronics processor. PROCEDURES PERFORMED: 1. Selective right and left coronary angiogram. 2. Left heart catheterization. 3. Left ventriculography. INDICATION: This is a pleasant 31-year-old gentleman who is a smoker. He presented to the hospital with chest discomfort and underwent stress echocardiogram which came in to be abnormal. He was scheduled to undergo a heart catheterization. APPROACH: Right common femoral artery. COMPLICATIONS: None. LEVEL OF SEDATION: Moderate with sedation length of 22 minutes. PROCEDURE DESCRIPTION: After obtaining informed consent, the patient was brought to the cardiac farm laborer. The right common femoral artery was cannulated using micropuncture technique. The micropuncture wire passed easily. Then I placed a 6-Korean sheath in the right common femoral artery. After that I did selective right and left coronary angiogram using JR4 and JL4 catheters. I did the left heart catheterization and subsequently left ventriculography using a 6- Korean pigtail catheter. The procedure was completed without any complication. SELECTIVE CORONARY ANGIOGRAM: 1. The RCA is a large-caliber vessel. It is a dominant vessel. It is angiographically normal. It bifurcates into PAD and PLV branches. Both are angiographically normal. 2. The left main is a large-caliber vessel. It is angiographically normal. It bifurcates into left circumflex and left anterior descending artery. 3. Left circumflex is a large-caliber vessel. It is a nondominant vessel. The proximal left circumflex is angiographically normal. It gives rise to a large OM branch which bifurcates into 2 subbranches. The OM branch is angiographically normal and the circumflex continues after that as a small-caliber vessel in the AV groove. 4. The LAD is a large-caliber vessel. The proximal LAD is normal and gives rise to a large diagonal branch which seems to be angiographically normal. The mid LAD is normal as well. It gives rise to a second diagonal branch which seems to be angiographically normal. The LAD distally is normal. HEMODYNAMICS: The left ventricular end-diastolic pressure was 12 mmHg, and no gradient was identified across the aortic valve. LEFT VENTRICULOGRAPHY: Left ventriculography was performed in the BAH projection using a power injection. The left ventricular systolic function is normal with EF between 50% and without any wall motion abnormalities. CONCLUSION: 1. Normal coronary angiogram. 2. Normal left ventricular end-diastolic pressure. 3. Normal left ventricular systolic function. MMODL / IJN: [id number] /
[2017-04-24] MEDS: ASPIRIN 325 MG TAB PO SCH (07:53)
[2017-04-24 07:58] VITALS: BP 109/60; PULSE 63; RESP 18; TEMP 97.5
--- NOTE | 2017-04-24 11:38 | P.DS ---
Providers Date of admission: 04/23/17 16:58 Attending physician: Abel Campo Consults: 04/21/17 17:09 Consult Physician Routine Consulting Provider: Marty Richards Consult Reason/Comments: chest pain Do you want consulting provider notified?: Yes Primary care physician: Stated None Hospital Course: Patient was admitted for chest pain probably musculoskeletal in nature, although had a positive stress test because of which patient underwent cardiac catheterization which did not show any significant abnormality. Patient will be discharged today and asked to take as needed Tylenol for chest pain. PHYSICAL EXAMINATION: GENERAL: The patient is alert and oriented x3, not in any acute distress. Well developed, well nourished. HEENT: Pupils are round and equally reacting to light. EOMI. No scleral icterus. No conjunctival pallor. Normocephalic, atraumatic. No pharyngeal erythema. No thyromegaly. CARDIOVASCULAR: S1 and S2 present. No murmurs, rubs, or gallops. PULMONARY: Chest is clear to auscultation, no wheezing or crackles. ABDOMEN: Soft, nontender, nondistended, normoactive bowel sounds. No palpable organomegaly. MUSCULOSKELETAL: No joint swelling or deformity. EXTREMITIES: No cyanosis, clubbing, or pedal edema. NEUROLOGICAL: Gross neurological examination did not reveal any focal deficits. SKIN: No rashes. Patient Condition at Discharge: Stable Plan - Discharge Summary New Discharge Prescriptions: No Action No Known Home Medications [No Known Home Medications] Discharge Medication List No Known Home Medications [No Known Home Medications] 01/28/16 [History] Follow up Appointment(s)/Referral(s): Thad Sanchez MD [STAFF PHYSICIAN] - 05/01/17 2:45 pm Virginia Person MD [STAFF PHYSICIAN] - 05/01/17 10:00 am (GIVE OFFICE A CALL ABOUT PAYMENT OPTIONS (PRIOR TO APPOINTMENT) GO EARLY TO APPOINTMENT TO FILL OUT PAPERWORK) None,Stated [Primary Care Provider] - 1-2 days Patient Instructions/Handouts: *Surgery [facility] - After Heart Catheterization - Surface Plate Inspector Instructions, Left Heart Catheterization (DC) Discharge Disposition: HOME SELF-CARE
--- NOTE | 2017-04-24 14:49 | P.PN ---
Subjective Principal diagnosis: Chest pain This is a pleasant 31-year-old gentleman who is a smoker. He presented to the hospital with complaints of chest discomfort and underwent stress echo which came in to be abnormal. He subsequently underwent heart catheterization by Dr. Sanchez which revealed normal coronary arteries, normal LV and diastolic pressure and normal LV systolic function. On examination, patient is resting comfortably in bed. Says he is feeling quite a bit better continues to have occasional chest pressure. Objective - Vital Signs Vital signs: Vital Signs Temp 97.5 F L 04/24/17 07:57 Pulse 63 04/24/17 07:57 Resp 18 04/24/17 07:57 BP 109/60 04/24/17 07:57 Pulse Ox 99 04/24/17 07:57 Intake & Output 04/23/17 04/24/17 04/24/17 18:59 06:59 18:59 Intake Total 1100 Output Total 750 Balance 1100 -750 Weight 121.5 kg Intake: IV 100 Intake, IV Titration 400 Amount Sodium Chloride 0.9% 1, 400 000 ml @ 100 mls/hr IV . Q10H [facility] Rx#:[id number] Oral 600 Output: Urine 750 Other: Voiding Method Toilet Toilet Urinal Urinal # Voids 1 - Exam PHYSICAL EXAMINATION: HEENT: Head is atraumatic, normocephalic. Pupils equal, round. Neck is supple. There is no elevated jugular venous pressure. HEART EXAMINATION: Heart sounds regular, S1 and S2 normal. No murmur or gallop heard. CHEST EXAMINATION: Lungs are clear to auscultation and precussion. No chest wall tenderness is noted on palpation or with deep breathing. ABDOMEN: Soft, nontender. Bowel sounds are heard. No organomegaly noted. EXTREMITIES: 2+ peripheral pulses with no evidence of peripheral edema and no calf tenderness noted. Right groin puncture site soft no ecchymosis or hematoma. NEUROLOGIC patient is awake, alert and oriented x3. . - EENT Eyes: Present: dentition normal - Labs CBC & Chem 7: 04/21/17 15:45 04/21/17 15:45 Assessment and Plan Plan: Assessment and plan #1 symptoms of chest pain, cardiac catheterization showed normal coronary arteries and normal LV systolic function and normal end-diastolic pressure. 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 He will follow-up at least once in the office in about a week for site check. He will be off work until that time. TEXTILE SUPERVISOR note has been reviewed, I agree with a documented findings and plan of care. Patient was seen and examined.
== END 2017-04-24 11:53 | disposition home or self-care (01) | DRG 287 ==
LOC: EC 14:52 → 6SEL 17:08 → OBSVTOIN 04-23 16:58
PROVIDERS: ADMIT Internal Medicine; ATTEND Internal Medicine
PROC: B2111ZZ Fluoroscopy of Multiple Coronary Arteries using Low Osmolar Contrast (ICD-10-PCS; 2017-04-23)
PROC: B2151ZZ Fluoroscopy of Left Heart using Low Osmolar Contrast (ICD-10-PCS; 2017-04-23)
PROC: 4A023N7 Measurement of Cardiac Sampling and Pressure, Left Heart, Percutaneous Approach (ICD-10-PCS; principal; 2017-04-23 14:02)
DX: R07.89 Other chest pain (principal); E66.9 Obesity, unspecified; F17.200 Nicotine dependence, unspecified, uncomplicated; Z68.36 Body mass index [BMI] 36.0-36.9, adult; Z71.3 Dietary counseling and surveillance
CPT/HCPCS: 36415; 71020; 80053; 80061; 82550; 82553; 84484; 85025; 85379; 85730; 93005; 93017; 93306; 93350; 93458; 96365; 96366; 96375; 96376; 99285

== ENCOUNTER 2021-02-08 22:08 | Emergency (ER) | payer OTHER ==
[2021-02-08 22:16] VITALS: BP 126/83; PULSE 76; RESP 17; TEMP 98.1
--- NOTE | 2021-02-08 22:31 | ED ---
Lower Extremity Injury HPI - General Chief Complaint: Extremity Injury, Lower Stated Complaint: Fall Time Seen by Provider: 02/08/21 22:20 Source: patient Mode of arrival: ambulatory - History of Present Illness Initial Comments: 35-year-old male presents to the emergency department with a chief complaint of right foot pain. Patient reports earlier today he was standing on a pink bucket when he rolled that he injured the lateral aspect of his right foot. States the incident occurred yesterday but it has been hurting since. States he continued to walk throughout the whole day on it. He reports some ecchymosis on the lateral aspect of the foot. Denies any ankle pain. Does report some swelling at the foot but denies any paresthesias or weakness. Denies taking medications to alleviate the pain. - Related Data Home Medications Medication Instructions Recorded Confirmed No Known Home Medications 01/28/16 02/08/21 Allergies Allergy/AdvReac Type Severity Reaction Status Date / Time No Known Allergies Allergy Verified 02/08/21 22:27 Review of Systems ROS Statement: Those systems with pertinent positive or pertinent negative responses have been documented in the HPI. ROS Other: All systems not noted in ROS Statement are negative. Past Medical History Past Medical History: No Reported History History of Any Multi-Drug Resistant Organisms: None Reported Past Surgical History: Adenoidectomy, Tonsillectomy Past Anesthesia/Blood Transfusion Reactions: No Reported Reaction Past Psychological History: No Psychological Hx Reported Smoking Status: Never smoker Past Alcohol Use History: None Reported, Rare Past Drug Use History: None Reported General Exam Limitations: no limitations General appearance: alert, in no apparent distress Head exam: Present: atraumatic, normocephalic, normal inspection Eye exam: Present: normal appearance, PERRL, EOMI Pupils: Present: normal accommodation ENT exam: Present: normal exam, normal oropharynx, mucous membranes moist Neck exam: Present: normal inspection, full ROM. Absent: tenderness, lymphadenopathy Respiratory exam: Present: normal lung sounds bilaterally. Absent: respiratory distress Cardiovascular Exam: Present: regular rate, normal rhythm, normal heart sounds. Absent: systolic murmur Extremities exam: Present: full ROM, tenderness (Tenderness of the fifth metatarsal but no midfoot tenderness. No malleoli tenderness), normal capillary refill, other (Palpable DP and PT bilaterally.). Absent: normal inspection (Small region of ecchymosis at the fifth metatarsal with mild swelling), pedal edema, joint swelling, calf tenderness Back exam: Present: normal inspection, full ROM Neurological exam: Present: alert, oriented X3 Psychiatric exam: Present: normal affect, normal mood Skin exam: Present: warm, dry, intact, normal color Course Vital Signs 02/08/21 22:12 Temperature 98.1 F Pulse Rate 76 Respiratory 17 Rate Blood Pressure 126/83 O2 Sat by Pulse 98 Oximetry Procedures - Orthopedic Splinting/Casting Injury #1 Side: left Lower Extremity Injury Location: foot Lower Extremity Immobilizer: posterior splint, Zia wrap, synthetic pre-padded splint Other Orthopedic Equipment: crutches Medical Decision Making - Medical Decision Making 35-year-old male presents emergency Department with a chief complaint of right foot pain. On physical examination, tenderness over the fifth metatarsal. No midfoot tenderness. X-ray shows a fifth metatarsal fracture. Patient is otherwise neurovascularly intact. Posterior splint will be applied advised to follow with customer management specialist. Crutches given. Case discussed with Disposition Clinical Impression: Fracture of fifth metatarsal bone Disposition: HOME SELF-CARE Condition: Stable Instructions (If sedation given, give patient instructions): Foot Fracture in Adults (ED) Additional Instructions: Follow with customer management specialist. Return to emergency department if symptoms worsen. Is patient prescribed a controlled substance at d/c from ED?: No Referrals: None,Stated [Primary Care Provider] - 1-2 days Nithin Ford DO [Doctor of Osteopathic Medicine] - 1-2 days Time of Disposition: 23:15
--- NOTE | 2021-02-08 22:57 | XR ---
EXAMINATION TYPE: XR foot complete RT DATE OF EXAM: 02/08/2021 COMPARISON: NONE HISTORY: None TECHNIQUE: 3 views FINDINGS: There is nondisplaced oblique fracture proximal shaft of the fifth metatarsal. There is plantar calcaneal spurring. The toes appear intact. IMPRESSION: Acute nondisplaced fifth metatarsal fracture.
== END 2021-02-08 23:55 | disposition home or self-care (01) ==
LOC: EC 22:08
DX: S92.351A Displaced fracture of fifth metatarsal bone, right foot, initial encounter for closed fracture (principal); W18.39XA Other fall on same level, initial encounter
CPT/HCPCS: 29515; 99284

== ENCOUNTER 2022-05-13 12:19 | Emergency (ER) | payer OTHER ==
[2022-05-13 12:35] VITALS: RESP 16
--- NOTE | 2022-05-13 12:52 | ED ---
Fall HPI - General Chief Complaint: Fall Stated Complaint: fall - rib pain - [facility] Time Seen by Provider: 05/13/22 12:35 Source: patient, RN notes reviewed Mode of arrival: ambulatory Limitations: no limitations - History of Present Illness Initial Comments: This a 36-year-old male presents emergency Department chief complaint of left- sided rib pain. Patient states that he fell into a hole a few days ago department for feet. Patient states he fell onto his left side and complaining of pain. Patient denies any head injury no loss conscious. It is worse with deep inspiration, movement. No bruising no abdominal pain no head injury no other injuries noted. - Related Data Previous Rx's Medication Instructions Recorded Ibuprofen [Motrin] 600 mg PO Q8HR PRN #20 tab 05/13/22 Allergies Allergy/AdvReac Type Severity Reaction Status Date / Time No Known Allergies Allergy Verified 05/13/22 12:34 Review of Systems ROS Statement: Those systems with pertinent positive or pertinent negative responses have been documented in the HPI. ROS Other: All systems not noted in ROS Statement are negative. Past Medical History Past Medical History: No Reported History History of Any Multi-Drug Resistant Organisms: None Reported Past Surgical History: Adenoidectomy, Tonsillectomy Past Anesthesia/Blood Transfusion Reactions: No Reported Reaction Past Psychological History: No Psychological Hx Reported Smoking Status: Never smoker Past Alcohol Use History: None Reported, Rare Past Drug Use History: None Reported General Exam Limitations: no limitations General appearance: alert, in no apparent distress Head exam: Present: atraumatic, normocephalic, normal inspection Eye exam: Present: normal appearance, PERRL, EOMI. Absent: scleral icterus, conjunctival injection, periorbital swelling ENT exam: Present: normal exam, normal oropharynx, mucous membranes moist Neck exam: Present: normal inspection, full ROM. Absent: tenderness, meningismus, lymphadenopathy Respiratory exam: Present: normal lung sounds bilaterally, chest wall tenderness (Left anterior lateral). Absent: respiratory distress, wheezes, rales, rhonchi, stridor Cardiovascular Exam: Present: regular rate, normal rhythm, normal heart sounds. Absent: systolic murmur, diastolic murmur, rubs, gallop, clicks GI/Abdominal exam: Present: soft, normal bowel sounds. Absent: distended, tenderness, guarding, rebound, rigid Extremities exam: Present: normal inspection, full ROM, normal capillary refill. Absent: tenderness, pedal edema, joint swelling, calf tenderness Back exam: Present: normal inspection, full ROM. Absent: tenderness, paraspinal tenderness, vertebral tenderness Neurological exam: Present: alert, oriented X3, CN II-XII intact, reflexes normal. Absent: motor sensory deficit Skin exam: Present: warm, dry, intact, normal color. Absent: rash Course Vital Signs 05/13/22 05/13/22 12:31 13:19 Temperature 98.5 F 98.1 F Pulse Rate 98 77 Respiratory 16 16 Rate Blood Pressure 152/79 122/65 O2 Sat by Pulse 99 100 Oximetry Medical Decision Making - Medical Decision Making 36-year-old male presented aside for chief complaint of left rib pain. Patient states he fell a few days ago x-rays May for acute fracture. Patient discharged stable condition. Disposition Clinical Impression: Fall, Contusion of rib on left side Disposition: HOME SELF-CARE Condition: Stable Instructions (If sedation given, give patient instructions): Rib Contusion (ED) Additional Instructions: Please return to the Emergency Department if symptoms worsen or any other concerns. Prescriptions: Ibuprofen [Motrin] 600 mg PO Q8HR PRN #20 tab PRN Reason: Pain Is patient prescribed a controlled substance at d/c from ED?: No Referrals: None,Stated [Primary Care Provider] - 1-2 days Time of Disposition: 13:27
--- NOTE | 2022-05-13 13:24 | XR ---
EXAMINATION TYPE: XR ribs LT w pa chest xray DATE OF EXAM: 05/13/2022 COMPARISON: NONE HISTORY: Pain TECHNIQUE: PA view of the chest and 4 views of the left ribs are submitted FINDINGS: Coarsened interstitium with no pleural effusion or pneumothorax. Lungs are clear. Heart siz e normal. Osseous structures intact. Hypertrophic and degenerative changes of the spine. IMPRESSION: 1. No acute displaced rib fracture.
[2022-05-13] MEDS ORDERED: ACET/COD 300 MG/30 MG STARTER PACK 6 TAB BTL PO STA (13:27)
[2022-05-13 13:39] VITALS: BP 125/73; PULSE 70; TEMP 97.6
== END 2022-05-13 13:36 | disposition home or self-care (01) ==
LOC: EC 12:19
DX: S20.212A Contusion of left front wall of thorax, initial encounter (principal); W19.XXXA Unspecified fall, initial encounter
CPT/HCPCS: 99284

== ENCOUNTER 2023-04-03 10:44 | Emergency (ER) | payer OTHER ==
[2023-04-03 10:53] VITALS: RESP 18
[2023-04-03 10:54] VITALS: TEMP 98.8
[2023-04-03] MEDS ORDERED: SODIUM CHLORIDE 0.9% 500 ML 500 ML IV STA (11:54)
--- NOTE | 2023-04-03 11:56 | ED ---
General Adult HPI - General Chief complaint: Arrhythmia/Palpitations Stated complaint: chest pains Time Seen by Provider: 04/03/23 11:00 Source: patient, RN notes reviewed, old records reviewed Mode of arrival: ambulatory Limitations: no limitations - History of Present Illness Initial comments: This is a 37-year-old male who presents to the emergency department complaining of occasional fluttering in his chest. Patient states his been ongoing for a couple weeks and he does not have any pain associated with the patient denies any shortness of breath or difficulty breathing. Patient denies any recent fever chills or cough. Patient denies any drug use or increased caffeine use. Patient denies headache patient denies numbness weakness. Patient states the fluttering just scared him so he decided come the emergency department. Patient denies any swelling to the legs or calf tenderness. - Related Data Home Medications Medication Instructions Recorded Confirmed No Known Home Medications 04/03/23 04/03/23 Allergies Allergy/AdvReac Type Severity Reaction Status Date / Time No Known Allergies Allergy Verified 04/03/23 14:24 Review of Systems ROS Statement: Those systems with pertinent positive or pertinent negative responses have been documented in the HPI. ROS Other: All systems not noted in ROS Statement are negative. Past Medical History Past Medical History: No Reported History History of Any Multi-Drug Resistant Organisms: None Reported Past Surgical History: Adenoidectomy, Tonsillectomy Past Anesthesia/Blood Transfusion Reactions: No Reported Reaction Past Psychological History: No Psychological Hx Reported Smoking Status: Current every day smoker, Vaper Past Alcohol Use History: Rare Past Drug Use History: Marijuana General Exam - General Exam Comments Initial Comments: GENERAL: Patient is well-developed and well-nourished. Patient is nontoxic and well- hydrated and is in no acute distress. ENT: Neck is soft and supple. No significant lymphadenopathy is noted. Oropharynx is clear. Moist mucous membranes. Neck has full range of motion without eliciting any pain. There is no thyroid enlargement and no masses were felt. EYES: The sclera were anicteric and conjunctiva were pink and moist. Extraocular movements were intact and pupils were equal round and reactive to light. Eyelids were unremarkable. PULMONARY: Unlabored respirations. Good breath sounds bilaterally. No audible rales rhonchi or wheezing was noted. CARDIOVASCULAR: There is a regular rate and rhythm without any murmurs gallops or rubs. ABDOMEN: Soft and nontender with normal bowel sounds. No palpable organomegaly was noted. There is no palpable pulsatile mass. SKIN: Skin is clear with no lesions or rashes and otherwise unremarkable. NEUROLOGIC: Patient is alert and oriented x3. Cranial nerves II through XII are grossly intact. Motor and sensory are also intact. Normal speech, volume and content. Symmetrical smile. MUSCULOSKELETAL: Normal extremities with adequate strength and full range of motion. No lower extremity swelling or edema. No calf tenderness. LYMPHATICS: No significant lymphadenopathy is noted PSYCHIATRIC: Normal psychiatric evaluation. Limitations: no limitations Course Vital Signs 04/03/23 04/03/23 04/03/23 10:50 11:51 13:27 Temperature 98.8 F Pulse Rate 92 80 76 Respiratory 18 18 18 Rate Blood Pressure 139/82 118/68 117/67 O2 Sat by Pulse 99 98 97 Oximetry 04/03/23 14:37 Temperature Pulse Rate 63 Respiratory 18 Rate Blood Pressure 91/51 O2 Sat by Pulse 97 Oximetry Medical Decision Making - Medical Decision Making EKG is interpreted by myself EKG shows a sinus rhythm at 81 bpm OR interval 256 QRS is 80 QT interval 346 QTC is 384. Patient's EKG shows no ST segment elevation or depression. Was pt. sent in by a medical professional or institution (, PA, ROUTE CONTRACTOR, urgent care, hospital, or fci...) When possible be specific @ -No Did you speak to anyone other than the patient for history (EMS, parent, family, police, friend...)? What history was obtained from this source @ -No Did you review nursing and triage notes (agree or disagree)? Why? @ -I reviewed and agree with nursing and triage notes Were old charts reviewed (outside hosp., previous admission, EMS record, old EKG, old radiological studies, urgent care reports/EKG's, fci records)? Report findings @ -No old charts were reviewed Differential Diagnosis (chest pain, altered mental status, abdominal pain women, abdominal pain men, vaginal bleeding, weakness, fever, dyspnea, syncope, headache, dizziness, GI bleed, back pain, seizure, CVA, palpatations, mental health, musculoskeletal)? @ -Differential Palpitations Ventricular arrhythmias, atrial arrhythmias, myocardial infarction, anemia, thyrotoxicosis, electrolyte imbalance, hypokalemia, pulmonary embolism, pulmonary disease, drugs, alcohol, anxiety, stress.... This is not meant to be an all-inclusive list. EKG interpreted by me (3pts min.). @ -As above X-rays interpreted by me (1pt min.). @ -Chest x-ray shows no acute abnormality CT interpreted by me (1pt min.). @ -None done U/S interpreted by me (1pt. min.). @ -None done What testing was considered but not performed or refused? (CT, X-rays, U/S, labs)? Why? @ -None What meds were considered but not given or refused? Why? @ -None Did you discuss the management of the patient with other professionals (professionals i.e. DrJesus, PA, ROUTE CONTRACTOR, lab, RT, psych nurse, social worker psychiatric, associate doctor, teacher, aviation ordnance officer, pillowcase folder)? Give summary @ -No Was smoking cessation discussed for >3mins.? @ -No Was critical care preformed (if so, how long)? @ -No Were there social determinants of health that impacted care today? How? (Homelessness, low income, unemployed, alcoholism, drug addiction, transportation, low edu. Level, literacy, decrease access to med. care, fci, rehab)? @ -No Was there de-escalation of care discussed even if they declined (Discuss DNR or withdrawal of care, Hospice)? DNR status @ -No What co-morbidities impacted this encounter? (DM, HTN, Smoking, COPD, CAD, Cancer, CVA, ARF, Chemo, Hep., AIDS, mental health diagnosis, sleep apnea, m orbid obesity)? @ -None Was patient admitted / discharged? Hospital course, mention meds given and route, prescriptions, significant lab abnormalities, going to OR and other pertinent info. @ -Patient's TSH was slightly low and I did order a T4 however patient did not want to stay and wait at this time I told him he needs to follow up he indicated to me he does not have a physician but he'll look for one. Patient had no palpitations while he was in the emergency department Undiagnosed new problem with uncertain prognosis? @ -No Drug Therapy requiring intensive monitoring for toxicity (Heparin, Nitro, Insulin, Cardizem)? @ -No Were any procedures done? @ -No Diagnosis/symptom? @ -Palpitations Acute, or Chronic, or Acute on Chronic? @ -Acute Uncomplicated (without systemic symptoms) or Complicated (systemic symptoms)? @ -Complicated Side effects of treatment? @ -No Exacerbation, Progression, or Severe Exacerbation? @ -No Poses a threat to life or bodily function? How? (Chest pain, [place], DC, pneumonia, PE, COPD, DKA, ARF, appy, cholecystitis, CVA, Diverticulitis, Homicidal, Suicidal, threat to staff... and all critical care pts) @ -No Diagnosis/symptom? @ -Low TSH Acute, or Chronic, or Acute on Chronic? @ -Acute Uncomplicated (without systemic symptoms) or Complicated (systemic symptoms)? @ -Complicated Side effects of treatment? @ -none Exacerbation, Progression, or Severe Exacerbation] @ -no Poses a threat to life or bodily function? @ -no - Lab Data Result diagrams: 04/03/23 11:03 04/03/23 12:00 Lab Results 04/03/23 04/03/23 04/03/23 Range/Units 11:03 12:00 12:00 WBC 10.4 (3.8-10.6) k/uL RBC 5.09 (4.30-5.90) m/uL Hgb 15.6 (13.0-17.5) gm/dL Hct 44.5 (39.0-53.0) % MCV 87.5 (80.0-100.0) fL MCH 30.7 (25.0-35.0) pg MCHC 35.1 (31.0-37.0) g/dL RDW 12.4 (11.5-15.5) % Plt Count 274 (150-450) k/uL MPV 8.9 Neutrophils % 67 % Lymphocytes % 24 % Monocytes % 5 % Eosinophils % 3 % Basophils % 0 % Neutrophils # 7.0 (1.3-7.7) k/uL Lymphocytes # 2.5 (1.0-4.8) k/uL Monocytes # 0.5 (0-1.0) k/uL Eosinophils # 0.3 (0-0.7) k/uL Basophils # 0.0 (0-0.2) k/uL PT 10.2 (9.0-12.0) sec INR 1.0 (<1.2) APTT 26.5 (22.0-30.0) sec Sodium 139 (137-145) mmol/L Potassium 4.7 (3.5-5.1) mmol/L Chloride 108 H (98-107) mmol/L Carbon Dioxide 21 L (22-30) mmol/L Anion Gap 10 mmol/L BUN 14 (9-20) mg/dL Creatinine 0.55 L (0.66-1.25) mg/dL Est GFR (CKD-EPI)AfAm >90 (>60 ml/min/1.73 sqM) Est GFR (CKD-EPI)NonAf >90 (>60 ml/min/1.73 sqM) Glucose 99 (74-99) mg/dL Calcium 9.4 (8.4-10.2) mg/dL Magnesium 1.9 (1.6-2.3) mg/dL Total Bilirubin 0.7 (0.2-1.3) mg/dL AST 31 (17-59) U/L ALT 25 (4-49) U/L Alkaline Phosphatase 50 (38-126) U/L Troponin I (0.000-0.034) ng/mL Total Protein 7.5 (6.3-8.2) g/dL Albumin 4.4 (3.5-5.0) g/dL TSH 0.456 L (0.465-4.680) mIU/L 04/03/23 Range/Units 12:00 WBC (3.8-10.6) k/uL RBC (4.30-5.90) m/uL Hgb (13.0-17.5) gm/dL Hct (39.0-53.0) % MCV (80.0-100.0) fL MCH (25.0-35.0) pg MCHC (31.0-37.0) g/dL RDW (11.5-15.5) % Plt Count (150-450) k/uL MPV Neutrophils % % Lymphocytes % % Monocytes % % Eosinophils % % Basophils % % Neutrophils # (1.3-7.7) k/uL Lymphocytes # (1.0-4.8) k/uL Monocytes # (0-1.0) k/uL Eosinophils # (0-0.7) k/uL Basophils # (0-0.2) k/uL PT (9.0-12.0) sec INR (<1.2) APTT (22.0-30.0) sec Sodium (137-145) mmol/L Potassium (3.5-5.1) mmol/L Chloride (98-107) mmol/L Carbon Dioxide (22-30) mmol/L Anion Gap mmol/L BUN (9-20) mg/dL Creatinine (0.66-1.25) mg/dL Est GFR (CKD-EPI)AfAm (>60 ml/min/1.73 sqM) Est GFR (CKD-EPI)NonAf (>60 ml/min/1.73 sqM) Glucose (74-99) mg/dL Calcium (8.4-10.2) mg/dL Magnesium (1.6-2.3) mg/dL Total Bilirubin (0.2-1.3) mg/dL AST (17-59) U/L ALT (4-49) U/L Alkaline Phosphatase (38-126) U/L Troponin I <0.012 (0.000-0.034) ng/mL Total Protein (6.3-8.2) g/dL Albumin (3.5-5.0) g/dL TSH (0.465-4.680) mIU/L Disposition Clinical Impression: Palpitations, Low TSH level Disposition: HOME SELF-CARE Condition: Good Instructions (If sedation given, give patient instructions): Heart Palpitations (ED), Hyperthyroidism (ED) Additional Instructions: Patient needs to get a primary medical care doctor in follow-up for his palpitations and low TSH Is patient prescribed a controlled substance at d/c from ED?: No Referrals: None,Stated [Primary Care Provider] - 1-2 days Time of Disposition: 14:45
[2023-04-03 12:12] LABS: Basophils % (A) 0 %; Eosinophils # (A) 0.3 k/uL (0-0.7); Eosinophils % (A) 3 %; HCT 44.5 % (39.0-53.0); HGB 15.6 gm/dL (13.0-17.5); Lymphocytes # (A) 2.5 k/uL (1.0-4.8); Lymphocytes % (A) 24 %; MCH 30.7 pg (25.0-35.0); MCHC 35.1 g/dL (31.0-37.0); MCV 87.5 fL (80.0-100.0); Mean Platelet Volume 8.9; Monocytes # (A) 0.5 k/uL (0-1.0); Monocytes % (A) 5 %; Neutrophils % (A) 67 %; Platelet Count 274 k/uL (150-450); RBC 5.09 m/uL (4.30-5.90); RDW 12.4 % (11.5-15.5); WBC 10.4 k/uL (3.8-10.6)
[2023-04-03 12:33] LABS: Partial Thromboplastin Time 26.5 sec (22.0-30.0); Prothrombin Time 10.2 sec (9.0-12.0)
--- NOTE | 2023-04-03 12:48 | XR ---
EXAMINATION TYPE: XR chest 2V DATE OF EXAM: 04/03/2023 COMPARISON: NONE TECHNIQUE: PA and lateral views submitted. HISTORY: Dysrhythmia and chest pain FINDINGS: The lungs are clear and there is no pneumothorax, pleural effusion, or focal pneumonia. Heart size normal and no overt failure. Osseous structures demonstrate hypertrophic and degenerative changes of the spine. IMPRESSION: 1. No acute process.
[2023-04-03 12:50] LABS: ALT 25 U/L (4-49); AST 31 U/L (17-59); African American GFR (CKD) >90 (>60 ml/min/1.73 sqM); Albumin 4.4 g/dL (3.5-5.0); Alkaline Phosphatase 50 U/L (38-126); Anion Gap 10 mmol/L; Blood Urea Nitrogen 14 mg/dL (9-20); Calcium 9.4 mg/dL (8.4-10.2); Carbon Dioxide 21 mmol/L (22-30); Chloride 108 mmol/L (98-107); Glucose 99 mg/dL (74-99); Magnesium 1.9 mg/dL (1.6-2.3); Non-African American GFR(CKD) >90 (>60 ml/min/1.73 sqM); Potassium 4.7 mmol/L (3.5-5.1); Sodium 139 mmol/L (137-145); Total Bilirubin 0.7 mg/dL (0.2-1.3); Total Protein 7.5 g/dL (6.3-8.2)
[2023-04-03 14:37] VITALS: BP 91/51; PULSE 63
== END 2023-04-03 14:52 | disposition home or self-care (01) ==
LOC: EC 10:44
DX: R00.2 Palpitations (principal); E03.9 Hypothyroidism, unspecified; F17.290 Nicotine dependence, other tobacco product, uncomplicated; F12.90 Cannabis use, unspecified, uncomplicated
CPT/HCPCS: 36415; 71046; 80053; 83735; 84439; 84443; 84484; 85025; 85610; 85730; 93005; 96360; 96361; 99285